=== PATIENT | male | born 1975 | race Two or more races ===

== ENCOUNTER 2023-10-30 13:24 | Observation (INO) | payer SELFPAY ==
[2023-10-30] MEDS: Ondansetron 4 MG/2 ML SDV IVPUSH ONE (15:41)
[2023-10-30] MEDS: Sodium Chloride 0.9% 1,000 ML IV ONE ×2 (15:42→18:03)
[2023-10-30] MEDS: Sodium Chloride 0.9% 2.5 ML Syringe FLUSH PRN (15:43)
[2023-10-30] MEDS: Sodium Chloride 0.9% 10 ML Syringe FLUSH PRN (15:43)
[2023-10-30 15:48] LABS: BASOPHILS ABSOLUTE AUTO 0.04 K/uL (0.00-0.20); BASOPHILS PERCENT AUTO 0.5 % (0.0-1.0); EOSINOPHILS ABSOLUTE AUTO 0.02 K/uL (0.00-0.45); EOSINOPHILS PERCENT AUTO 0.2 % (0.0-6.0); HEMATOCRIT 41.4 % (42.0-52.0); HEMOGLOBIN 15.1 g/dL (14.0-18.0); IMMATURE GRAN ABSOLUTE AUTO 0.07 K/uL (0.00-0.05); IMMATURE GRAN PERCENT AUTO 0.8 % (0.0-0.4); LYMPHOCYTES ABSOLUTE AUTO 2.11 K/uL (1.00-4.80); LYMPHOCYTES PERCENT AUTO 24.9 % (24.0-44.0); MEAN CORPUSCULAR HEMOGLOBIN 30.6 pg (28.0-32.0); MEAN CORPUSCULAR HGB CONC 36.5 g/dL (32.0-36.0); MEAN CORPUSCULAR VOLUME 83.8 fL (83.0-99.0); MEAN PLATELET VOLUME 10.6 fL (9.4-12.4); MONOCYTES ABSOLUTE AUTO 0.75 K/uL (0.00-0.80); MONOCYTES PERCENT AUTO 8.8 % (0.0-8.0); NEUTROPHILS ABSOLUTE AUTO 5.49 K/uL (1.80-7.70); NEUTROPHILS PERCENT AUTO 64.8 % (41.0-71.0); PLATELET COUNT,PLT 189 K/uL (150-400); RED BLOOD CELL COUNT 4.94 M/uL (4.52-5.90); WHITE BLOOD CELL COUNT,WBC 8.48 K/uL (3.9-11.3)
[2023-10-30 16:14] LABS: CALCIUM 9.2 mg/dL (8.5-10.1); CARBON DIOXIDE,CO2 31.7 mmol/L (21.0-32.0); EST CRCL DRUG DOSING (CG) 65.38 mL/min; POTASSIUM,K 3.6 mmol/L (3.5-5.1); PROTEIN TOTAL,TP 7.9 g/dL (6.4-8.2)
[2023-10-30 16:37] LABS: HEMOGLOBIN A1C 11.9 %
[2023-10-30] MEDS ORDERED: Ondansetron 4 MG/2 ML SDV IVPUSH PRN (22:18)
[2023-10-30] MEDS ORDERED: Glucagon,Human Recombinant 1 MG Vial IM PRN (22:18)
[2023-10-30] MEDS ORDERED: 50% Dextrose in Water 50 ML Syringe IVPUSH PRN (22:18)
[2023-10-30] MEDS ORDERED: Acetaminophen 325 MG Tab PO PRN (22:18)
[2023-10-30] MEDS: Insulin Glargine,Hum.Rec.Anlog 100 UNIT/ML 3 ML Pen SUBCUT SCH (22:54)
[2023-10-30] MEDS: Insulin Aspart 100 Units/ML 3 ML Pen SUBCUT SCH (22:59)
[2023-10-31 05:30] LABS: APPEARANCE,URINE CLEAR; BILIRUBIN,URINE NEGATIVE (NEGATIVE); COLOR,URINE YELLOW; GLUCOSE,URINE >=1000 mg/dL (NEGATIVE); KETONES,URINE 15 mg/dL (NEGATIVE); LEUKOCYTE ESTERASE,URINE NEGATIVE (NEGATIVE); NITRITE,URINE NEGATIVE (NEGATIVE); OCCULT BLOOD,URINE NEGATIVE (NEGATIVE); PROTEIN,URINE TRACE mg/dL (NEGATIVE)
[2023-10-31 05:34] LABS: BACTERIA,URINE FEW (NEGATIVE); EPITHELIAL CELLS,URINE RARE (NONE-FEW); RBC,URINE 0-1 (0-2/HPF); WBC,URINE 0-2 (0-5/HPF)
[2023-10-31 06:16] LABS: BASOPHILS ABSOLUTE AUTO 0.02 K/uL (0.00-0.20); BASOPHILS PERCENT AUTO 0.3 % (0.0-1.0); EOSINOPHILS ABSOLUTE AUTO 0.09 K/uL (0.00-0.45); EOSINOPHILS PERCENT AUTO 1.5 % (0.0-6.0); HEMOGLOBIN 13.2 g/dL (14.0-18.0); IMMATURE GRAN ABSOLUTE AUTO 0.01 K/uL (0.00-0.05); IMMATURE GRAN PERCENT AUTO 0.2 % (0.0-0.4); LYMPHOCYTES PERCENT AUTO 45.2 % (24.0-44.0); MEAN CORPUSCULAR HGB CONC 35.7 g/dL (32.0-36.0); MEAN CORPUSCULAR VOLUME 86.9 fL (83.0-99.0); MEAN PLATELET VOLUME 10.5 fL (9.4-12.4); MONOCYTES ABSOLUTE AUTO 0.46 K/uL (0.00-0.80); MONOCYTES PERCENT AUTO 7.4 % (0.0-8.0); NEUTROPHILS ABSOLUTE AUTO 2.81 K/uL (1.80-7.70); NEUTROPHILS PERCENT AUTO 45.4 % (41.0-71.0); PLATELET COUNT,PLT 143 K/uL (150-400); RED BLOOD CELL COUNT 4.26 M/uL (4.52-5.90); WHITE BLOOD CELL COUNT,WBC 6.19 K/uL (3.9-11.3)
[2023-10-31 06:45] LABS: CARBON DIOXIDE,CO2 25.8 mmol/L (21.0-32.0); CREATININE 0.7 mg/dL (0.8-1.3); EST CRCL DRUG DOSING (CG) 93.39 mL/min; POTASSIUM,K 3.3 mmol/L (3.5-5.1)
[2023-10-31] MEDS ORDERED: Sodium Chloride 0.9% 2.5 ML Syringe FLUSH PRN (08:10)
[2023-10-31] MEDS ORDERED: Sodium Chloride 0.9% 10 ML Syringe FLUSH PRN (08:10)
[2023-10-31] MEDS: Insulin Aspart 100 Units/ML 3 ML Pen SUBCUT SCH (08:19)
[2023-10-31] MEDS: Potassium Chloride 20 MEQ Tab.ER PO ONE (08:25)
== END 2023-10-31 14:30 | disposition home or self-care (01) ==
LOC: MW.ED 13:24 → MW.MS 19:06
PROVIDERS: ADMIT Internal Medicine; ATTEND Internal Medicine
DX: E11.65 Type 2 diabetes mellitus with hyperglycemia (principal); Z87.891 Personal history of nicotine dependence
CPT/HCPCS: 36415; 76705; 80048; 80053; 80061; 81001; 82947; 83036; 83690; 83735; 84484; 85025; 93005; 96361; 96374; 99285; A9270; J1815; J2405; J3490; J7030; 93010; 99284; G0378

== ENCOUNTER 2023-12-19 06:45 | Observation (INO) | payer SELFPAY ==
[2023-12-19 07:40] LABS: BASE EXCESS VENOUS 26.3 (-2.0-3.0); BICARBONATE,VENOUS 54 mEQ/mL (22-28); PCO2 VENOUS 62 mmHG (41-51); PH,VENOUS 7.55 (7.31-7.41)
[2023-12-19 07:43] LABS: BASOPHILS ABSOLUTE AUTO 0.03 K/uL (0.00-0.20); BASOPHILS PERCENT AUTO 0.4 % (0.0-1.0); EOSINOPHILS ABSOLUTE AUTO 0.05 K/uL (0.00-0.45); EOSINOPHILS PERCENT AUTO 0.6 % (0.0-6.0); HEMATOCRIT 41.8 % (42.0-52.0); HEMOGLOBIN 15.6 g/dL (14.0-18.0); IMMATURE GRAN ABSOLUTE AUTO 0.01 K/uL (0.00-0.05); IMMATURE GRAN PERCENT AUTO 0.1 % (0.0-0.4); LYMPHOCYTES ABSOLUTE AUTO 2.67 K/uL (1.00-4.80); LYMPHOCYTES PERCENT AUTO 31.8 % (24.0-44.0); MEAN CORPUSCULAR HEMOGLOBIN 30.4 pg (28.0-32.0); MEAN CORPUSCULAR HGB CONC 37.3 g/dL (32.0-36.0); MEAN CORPUSCULAR VOLUME 81.3 fL (83.0-99.0); MEAN PLATELET VOLUME 9.7 fL (9.4-12.4); MONOCYTES ABSOLUTE AUTO 0.82 K/uL (0.00-0.80); MONOCYTES PERCENT AUTO 9.8 % (0.0-8.0); NEUTROPHILS ABSOLUTE AUTO 4.82 K/uL (1.80-7.70); NEUTROPHILS PERCENT AUTO 57.3 % (41.0-71.0); PLATELET COUNT,PLT 206 K/uL (150-400); PO2 VENOUS < 30 mmHG (35-45); RED BLOOD CELL COUNT 5.14 M/uL (4.52-5.90)
[2023-12-19] MEDS: Sodium Chloride 0.9% 10 ML Syringe FLUSH PRN (07:49)
[2023-12-19] MEDS: Sodium Chloride 0.9% 2.5 ML Syringe FLUSH PRN (07:49)
[2023-12-19] MEDS: Famotidine 20 MG/2 ML SDV IVPUSH ONE (07:49)
[2023-12-19] MEDS: Ondansetron 4 MG/2 ML SDV IVPUSH ONE (07:49)
[2023-12-19] MEDS: Sodium Chloride 0.9% 1,000 ML IV ONE (07:49)
[2023-12-19 08:11] LABS: ALBUMIN 4.2 g/dL (3.4-5.0); BILIRUBIN TOTAL 3.4 mg/dL (0.2-1.0); CALCIUM 9.9 mg/dL (8.5-10.1); CREATININE 1.2 mg/dL (0.8-1.3); EST CRCL DRUG DOSING (CG) 49.27 mL/min; PROTEIN TOTAL,TP 8.2 g/dL (6.4-8.2)
[2023-12-19 08:14] LABS: CARBON DIOXIDE,CO2 47.5 mmol/L (21.0-32.0); POTASSIUM,K 2.2 mmol/L (3.5-5.1)
[2023-12-19] MEDS ORDERED: Potassium Chloride 20 MEQ in Premix Bag 1 BAG IV ONE (08:15)
[2023-12-19] MEDS: Potassium Chloride 10% 20 MEQ/15 ML Soln 15 ML UD Cup PO ONE (08:19)
[2023-12-19] MEDS ORDERED: Magnesium Sulfate (4.06 MEQ/ML) 5 GM/10 ML SDV IV ONE (08:23)
[2023-12-19] MEDS: Potassium Chloride 10 MEQ in Premix Bag 1 BAG IV SCH (08:52)
[2023-12-19] MEDS: Sodium Chloride 0.9% 250 ML IV ONE (08:52)
[2023-12-19] MEDS: Magnesium Sulfate/Water 2 GM in Premix Bag 1 BAG IV ONE (08:52)
[2023-12-19] MEDS ORDERED: Polyethylene Glycol 3350 Powder 17 GM Packet PO PRN (10:36)
[2023-12-19] MEDS ORDERED: Ondansetron 4 MG Tab.DIS PO PRN (10:36)
[2023-12-19] MEDS ORDERED: Glucagon,Human Recombinant 1 MG Vial IM PRN (10:53)
[2023-12-19] MEDS ORDERED: 50% Dextrose in Water 50 ML Syringe IVPUSH PRN (10:53)
[2023-12-19] MEDS: Potassium Chloride 20 MEQ Tab.ER PO ONE ×2 (11:44→16:48)
[2023-12-19] MEDS: Enoxaparin 40 MG/0.4 ML Syringe SUBCUT SCH (11:44)
[2023-12-19] MEDS: Insulin Aspart 100 Units/ML 3 ML Pen SUBCUT SCH (11:44)
[2023-12-19 12:34] LABS: CALCIUM 8.7 mg/dL (8.5-10.1); EST CRCL DRUG DOSING (CG) 56.25 mL/min; POTASSIUM,K 2.8 mmol/L (3.5-5.1)
[2023-12-19] MEDS: Pantoprazole 40 MG Tab.CR PO SCH (16:47)
[2023-12-19 17:45] LABS: CALCIUM 9.3 mg/dL (8.5-10.1); CARBON DIOXIDE,CO2 42.4 mmol/L (21.0-32.0); CREATININE 1.1 mg/dL (0.8-1.3); EST CRCL DRUG DOSING (CG) 51.14 mL/min; POTASSIUM,K 3.1 mmol/L (3.5-5.1)
[2023-12-19 18:31] LABS: APPEARANCE,URINE CLEAR; BILIRUBIN,URINE NEGATIVE (NEGATIVE); COLOR,URINE YELLOW; GLUCOSE,URINE 250 mg/dL (NEGATIVE); KETONES,URINE TRACE mg/dL (NEGATIVE); LEUKOCYTE ESTERASE,URINE NEGATIVE (NEGATIVE); NITRITE,URINE NEGATIVE (NEGATIVE); OCCULT BLOOD,URINE NEGATIVE (NEGATIVE); PROTEIN,URINE 100 mg/dL (NEGATIVE)
[2023-12-19 18:59] LABS: BACTERIA,URINE FEW (NEGATIVE); EPITHELIAL CELLS,URINE FEW (NONE-FEW); RBC,URINE 0-2 (0-2/HPF)
[2023-12-19] MEDS: Acetaminophen 325 MG Tab PO PRN (23:14)
[2023-12-20 06:11] LABS: BASOPHILS ABSOLUTE AUTO 0.03 K/uL (0.00-0.20); BASOPHILS PERCENT AUTO 0.4 % (0.0-1.0); EOSINOPHILS ABSOLUTE AUTO 0.09 K/uL (0.00-0.45); EOSINOPHILS PERCENT AUTO 1.1 % (0.0-6.0); HEMATOCRIT 36.7 % (42.0-52.0); HEMOGLOBIN 13.3 g/dL (14.0-18.0); IMMATURE GRAN ABSOLUTE AUTO 0.02 K/uL (0.00-0.05); IMMATURE GRAN PERCENT AUTO 0.2 % (0.0-0.4); LYMPHOCYTES ABSOLUTE AUTO 2.57 K/uL (1.00-4.80); LYMPHOCYTES PERCENT AUTO 30.6 % (24.0-44.0); MEAN CORPUSCULAR HGB CONC 36.2 g/dL (32.0-36.0); MEAN CORPUSCULAR VOLUME 82.7 fL (83.0-99.0); MONOCYTES ABSOLUTE AUTO 0.75 K/uL (0.00-0.80); MONOCYTES PERCENT AUTO 8.9 % (0.0-8.0); NEUTROPHILS ABSOLUTE AUTO 4.93 K/uL (1.80-7.70); NEUTROPHILS PERCENT AUTO 58.8 % (41.0-71.0); PLATELET COUNT,PLT 164 K/uL (150-400); RED BLOOD CELL COUNT 4.44 M/uL (4.52-5.90); WHITE BLOOD CELL COUNT,WBC 8.39 K/uL (3.9-11.3)
[2023-12-20 06:33] LABS: ALBUMIN 3.5 g/dL (3.4-5.0); BILIRUBIN TOTAL 1.8 mg/dL (0.2-1.0); CARBON DIOXIDE,CO2 39.3 mmol/L (21.0-32.0); EST CRCL DRUG DOSING (CG) 56.25 mL/min; MAGNESIUM 1.9 mg/dL (1.8-2.4); POTASSIUM,K 3.5 mmol/L (3.5-5.1); PROTEIN TOTAL,TP 6.9 g/dL (6.4-8.2)
[2023-12-20] MEDS: Lactated Ringers 1,000 ML IV ONE (11:01)
[2023-12-23 13:08] LABS: HAV AB IGM Negative (Negative); HBC IGM Negative (Negative); HEP B SURG AG Negative (Negative); HEP C AB BY CIA Negative (Negative); HEP C AB BY CIA INDEX 0.04 IV
== END 2023-12-20 14:10 | disposition home or self-care (01) ==
LOC: MW.ED 06:45 → MW.MS 08:28
PROVIDERS: ADMIT Family Medicine; ATTEND Family Medicine
DX: E87.6 Hypokalemia (principal); R11.2 Nausea with vomiting, unspecified; E11.9 Type 2 diabetes mellitus without complications; R10.84 Generalized abdominal pain; Z79.4 Long term (current) use of insulin
CPT/HCPCS: 36415; 80048; 80053; 80074; 81001; 82803; 82947; 83036; 83690; 83735; 84484; 85025; 86308; 87389; 93005; 96361; 96365; 96366; 96368; 96372; 96375; 99285; A9270; G0378; J1650; J1815; J2405; J3475; J3480; J3490; J7030; J7050; J7120; 93010; 99222; 99239

== ENCOUNTER 2023-12-29 09:29 | Emergency (ER) | payer OTHER ==
[2023-12-29] MEDS ORDERED: Sodium Chloride 0.9% 10 ML Syringe FLUSH PRN (09:41)
[2023-12-29] MEDS ORDERED: Sodium Chloride 0.9% 2.5 ML Syringe FLUSH PRN (09:41)
[2023-12-29 09:52] LABS: BASOPHILS ABSOLUTE AUTO 0.03 K/uL (0.00-0.20); BASOPHILS PERCENT AUTO 0.4 % (0.0-1.0); EOSINOPHILS ABSOLUTE AUTO 0.04 K/uL (0.00-0.45); EOSINOPHILS PERCENT AUTO 0.6 % (0.0-6.0); HEMATOCRIT 36.1 % (42.0-52.0); HEMOGLOBIN 13.5 g/dL (14.0-18.0); IMMATURE GRAN ABSOLUTE AUTO 0.02 K/uL (0.00-0.05); IMMATURE GRAN PERCENT AUTO 0.3 % (0.0-0.4); LYMPHOCYTES ABSOLUTE AUTO 2.25 K/uL (1.00-4.80); LYMPHOCYTES PERCENT AUTO 31.8 % (24.0-44.0); MEAN CORPUSCULAR HEMOGLOBIN 30.6 pg (28.0-32.0); MEAN CORPUSCULAR HGB CONC 37.4 g/dL (32.0-36.0); MEAN CORPUSCULAR VOLUME 81.9 fL (83.0-99.0); MEAN PLATELET VOLUME 9.3 fL (9.4-12.4); MONOCYTES ABSOLUTE AUTO 0.57 K/uL (0.00-0.80); MONOCYTES PERCENT AUTO 8.1 % (0.0-8.0); NEUTROPHILS ABSOLUTE AUTO 4.17 K/uL (1.80-7.70); NEUTROPHILS PERCENT AUTO 58.8 % (41.0-71.0); PLATELET COUNT,PLT 226 K/uL (150-400); RED BLOOD CELL COUNT 4.41 M/uL (4.52-5.90); WHITE BLOOD CELL COUNT,WBC 7.08 K/uL (3.9-11.3)
[2023-12-29] MEDS: Ondansetron 4 MG/2 ML SDV IVPUSH ONE (09:52)
[2023-12-29] MEDS: Ketorolac 30 MG/ML SDV IVPUSH ONE (09:52)
[2023-12-29] MEDS: Sodium Chloride 0.9% 1,000 ML IV ONE (09:52)
[2023-12-29] MEDS: Alum Hydro/Mag Hydro/Simeth XS 15 ML, Metoclopramide 5 MG, Lidocaine 2% 5 ML PO ONE (09:53)
[2023-12-29 09:56] LABS: APPEARANCE,URINE CLOUDY; BILIRUBIN,URINE NEGATIVE (NEGATIVE); COLOR,URINE YELLOW; GLUCOSE,URINE 100 mg/dL (NEGATIVE); KETONES,URINE 15 mg/dL (NEGATIVE); LEUKOCYTE ESTERASE,URINE NEGATIVE (NEGATIVE); NITRITE,URINE NEGATIVE (NEGATIVE); OCCULT BLOOD,URINE NEGATIVE (NEGATIVE); PROTEIN,URINE 100 mg/dL (NEGATIVE)
[2023-12-29 10:04] LABS: AMORPHOUS SEDIMENT,URINE HEAVY (NEGATIVE); BACTERIA,URINE FEW (NEGATIVE); EPITHELIAL CELLS,URINE FEW (NONE-FEW); MUCUS,URINE LIGHT (NONE-MOD); RBC,URINE 0-2 (0-2/HPF)
[2023-12-29 10:25] LABS: A/G RATIO 1.1 (0.9-1.6); ALBUMIN 3.7 g/dL (3.4-5.0); BILIRUBIN TOTAL 2.2 mg/dL (0.2-1.0); CALCIUM 9.5 mg/dL (8.5-10.1); CARBON DIOXIDE,CO2 34.2 mmol/L (21.0-32.0); CREATININE 0.7 mg/dL (0.8-1.3); EST CRCL DRUG DOSING (CG) 82.14 mL/min; MAGNESIUM 1.5 mg/dL (1.8-2.4); POTASSIUM,K 2.6 mmol/L (3.5-5.1); PROTEIN TOTAL,TP 7.1 g/dL (6.4-8.2)
[2023-12-29] MEDS: Magnesium Oxide 400 MG Tab PO ONE (10:45)
[2023-12-29] MEDS: Potassium Chloride 20 MEQ Tab.ER PO ONE (10:45)
== END 2023-12-29 12:12 | disposition home or self-care (01) ==
LOC: MW.ED 09:29
DX: K52.9 Noninfective gastroenteritis and colitis, unspecified (principal); E87.6 Hypokalemia; E11.9 Type 2 diabetes mellitus without complications; Z75.8 Other problems related to medical facilities and other health care; Z79.4 Long term (current) use of insulin; Z79.899 Other long term (current) drug therapy
CPT/HCPCS: 36415; 76705; 80053; 81001; 82009; 83690; 83735; 85025; 93005; 96361; 96374; 96375; 99284; A9270; J1885; J2405; J7030; 93010

== ENCOUNTER 2023-12-30 12:47 | Emergency (ER) | payer OTHER ==
[2023-12-30] MEDS: Ondansetron 4 MG/2 ML SDV IVPUSH ONE (13:39)
[2023-12-30] MEDS: Sodium Chloride 0.9% 1,000 ML IV ONE ×2 (13:39)
[2023-12-30 14:03] LABS: BASOPHILS ABSOLUTE AUTO 0.02 K/uL (0.00-0.20); BASOPHILS PERCENT AUTO 0.2 % (0.0-1.0); EOSINOPHILS ABSOLUTE AUTO 0.01 K/uL (0.00-0.45); EOSINOPHILS PERCENT AUTO 0.1 % (0.0-6.0); HEMATOCRIT 38.5 % (42.0-52.0); HEMOGLOBIN 14.5 g/dL (14.0-18.0); IMMATURE GRAN ABSOLUTE AUTO 0.04 K/uL (0.00-0.05); IMMATURE GRAN PERCENT AUTO 0.5 % (0.0-0.4); LYMPHOCYTES ABSOLUTE AUTO 2.35 K/uL (1.00-4.80); LYMPHOCYTES PERCENT AUTO 26.5 % (24.0-44.0); MEAN CORPUSCULAR HGB CONC 37.7 g/dL (32.0-36.0); MEAN CORPUSCULAR VOLUME 82.3 fL (83.0-99.0); MEAN PLATELET VOLUME 9.5 fL (9.4-12.4); MONOCYTES ABSOLUTE AUTO 0.71 K/uL (0.00-0.80); NEUTROPHILS ABSOLUTE AUTO 5.74 K/uL (1.80-7.70); NEUTROPHILS PERCENT AUTO 64.7 % (41.0-71.0); PLATELET COUNT,PLT 311 K/uL (150-400); RED BLOOD CELL COUNT 4.68 M/uL (4.52-5.90); WHITE BLOOD CELL COUNT,WBC 8.87 K/uL (3.9-11.3)
[2023-12-30 14:05] LABS: BASE EXCESS VENOUS 11.3 (-2.0-3.0); PH,VENOUS 7.5 (7.31-7.41)
[2023-12-30 14:56] LABS: A/G RATIO 1.1 (0.9-1.6); ALANINE AMINOTRANSFERASE,ALT 34 IU/L (14-63); ALBUMIN 3.9 g/dL (3.4-5.0); ALKALINE PHOSPHATASE 70 U/L (46-116); ASPARTATE AMNIOTRANSFERASE,AST 24 IU/L (15-37); BILIRUBIN TOTAL 2.9 mg/dL (0.2-1.0); BLOOD UREA NITROGEN,BUN 27 mg/dL (7.0-18.0); CALCIUM 9.7 mg/dL (8.5-10.1); CARBON DIOXIDE,CO2 33.9 mmol/L (21.0-32.0); CHLORIDE,CL 95 mmol/L (98-107); CREATININE 1.4 mg/dL (0.8-1.3); EST CRCL DRUG DOSING (CG) 39.29 mL/min; GLUCOSE RANDOM 170 mg/dL (74-106); LIPASE 22 U/L (16-77); MAGNESIUM 1.9 mg/dL (1.8-2.4); POTASSIUM,K 2.9 mmol/L (3.5-5.1); PROTEIN TOTAL,TP 7.6 g/dL (6.4-8.2); SODIUM,NA 140 mmol/L (136-148); TSH ULTRASENSITIVE 1.26 uIU/mL (0.36-3.74)
[2023-12-30 15:00] LABS: ESTIMATED GFR 61 mL/min (>60); ETHANOL BLOOD MEDICAL < 3.0 mg/dL
[2023-12-30] MEDS: Iopamidol 755 MG/ML 500 ML Multipack Bottle IVPUSH ONE (15:53)
[2023-12-30] MEDS: Morphine 4 MG/ML Syringe IVPUSH ONE (17:53)
[2023-12-30] MEDS: Alum Hydro/Mag Hydro/Simeth XS 15 ML, Lidocaine 2% 5 ML PO ONE (17:53)
[2023-12-30] MEDS: Sodium Chloride 0.9% 2.5 ML Syringe FLUSH PRN (22:24)
[2023-12-30] MEDS: Sodium Chloride 0.9% 10 ML Syringe FLUSH PRN (22:24)
[2023-12-30] MEDS: Lidocaine 2% Viscous Solution 15 ML UD PO ONE (22:24)
[2023-12-30] MEDS: Potassium Chloride 10 MEQ in Premix Bag 1 BAG IV ONE (23:08)
[2023-12-30] MEDS: Sodium Chloride 0.9% 250 ML IV SCH (23:09)
== END 2023-12-31 05:20 ==
LOC: MW.ED 12:47
DX: K31.5 Obstruction of duodenum (principal); E87.6 Hypokalemia; K86.9 Disease of pancreas, unspecified
CPT/HCPCS: 36415; 43752; 74177; 80053; 80307; 82803; 82947; 83605; 83690; 83735; 84443; 84484; 85025; 96361; 96374; 96375; 99285; A9270; J2270; J2405; J3480; J3490; J7030; J7050; Q9967; 99284

== ENCOUNTER 2024-01-11 08:35 | Emergency (ER) | payer OTHER ==
[2024-01-11] MEDS ORDERED: Sodium Chloride 0.9% 10 ML Syringe FLUSH PRN (08:47)
[2024-01-11] MEDS ORDERED: Sodium Chloride 0.9% 2.5 ML Syringe FLUSH PRN (08:47)
[2024-01-11] MEDS: Sodium Chloride 0.9% 1,000 ML IV ONE (08:59)
[2024-01-11] MEDS: Famotidine 20 MG/2 ML SDV IVPUSH ONE (09:00)
[2024-01-11] MEDS: HYDROmorphone 1 MG/ML Syringe IVPUSH ONE (09:00)
[2024-01-11] MEDS: Ondansetron 4 MG/2 ML SDV IVPUSH ONE (09:01)
[2024-01-11 09:03] LABS: BASOPHILS ABSOLUTE AUTO 0.04 K/uL (0.00-0.20); BASOPHILS PERCENT AUTO 0.6 % (0.0-1.0); EOSINOPHILS ABSOLUTE AUTO 0.03 K/uL (0.00-0.45); EOSINOPHILS PERCENT AUTO 0.4 % (0.0-6.0); HEMATOCRIT 33.7 % (42.0-52.0); IMMATURE GRAN ABSOLUTE AUTO 0.01 K/uL (0.00-0.05); IMMATURE GRAN PERCENT AUTO 0.1 % (0.0-0.4); LYMPHOCYTES ABSOLUTE AUTO 1.83 K/uL (1.00-4.80); MEAN CORPUSCULAR HEMOGLOBIN 30.2 pg (28.0-32.0); MEAN CORPUSCULAR HGB CONC 35.6 g/dL (32.0-36.0); MEAN CORPUSCULAR VOLUME 84.7 fL (83.0-99.0); MEAN PLATELET VOLUME 8.9 fL (9.4-12.4); MONOCYTES ABSOLUTE AUTO 0.53 K/uL (0.00-0.80); MONOCYTES PERCENT AUTO 7.8 % (0.0-8.0); NEUTROPHILS ABSOLUTE AUTO 4.34 K/uL (1.80-7.70); NEUTROPHILS PERCENT AUTO 64.1 % (41.0-71.0); PLATELET COUNT,PLT 252 K/uL (150-400); RED BLOOD CELL COUNT 3.98 M/uL (4.52-5.90); WHITE BLOOD CELL COUNT,WBC 6.78 K/uL (3.9-11.3)
[2024-01-11 09:24] LABS: A/G RATIO 0.9 (0.9-1.6); ALBUMIN 3.4 g/dL (3.4-5.0); BILIRUBIN TOTAL 1.4 mg/dL (0.2-1.0); CALCIUM 8.9 mg/dL (8.5-10.1); CREATININE 0.7 mg/dL (0.8-1.3); EST CRCL DRUG DOSING (CG) 77.68 mL/min; POTASSIUM,K 3.9 mmol/L (3.5-5.1); PROTEIN TOTAL,TP 7.1 g/dL (6.4-8.2)
== END 2024-01-11 09:48 | disposition home or self-care (01) ==
LOC: MW.ED 08:35
DX: C25.9 Malignant neoplasm of pancreas, unspecified (principal); Z79.899 Other long term (current) drug therapy
CPT/HCPCS: 36415; 80053; 83690; 85025; 96361; 96374; 96375; 99284; J1170; J2405; J3490; J7030

== ENCOUNTER 2024-01-13 07:26 | Emergency (ER) | payer OTHER ==
[2024-01-13] MEDS: Sodium Chloride 0.9% 2.5 ML Syringe FLUSH PRN (08:09)
[2024-01-13] MEDS: Sodium Chloride 0.9% 10 ML Syringe FLUSH PRN (08:09)
[2024-01-13] MEDS: HYDROmorphone 1 MG/ML Syringe IVPUSH ONE (08:10)
[2024-01-13] MEDS: Ondansetron 4 MG/2 ML SDV IVPUSH ONE (08:11)
[2024-01-13] MEDS: Sodium Chloride 0.9% 500 ML IV SCH (08:23)
[2024-01-13 08:25] LABS: BASOPHILS ABSOLUTE AUTO 0.03 K/uL (0.00-0.20); BASOPHILS PERCENT AUTO 0.5 % (0.0-1.0); EOSINOPHILS ABSOLUTE AUTO 0.05 K/uL (0.00-0.45); EOSINOPHILS PERCENT AUTO 0.8 % (0.0-6.0); HEMATOCRIT 32.6 % (42.0-52.0); IMMATURE GRAN ABSOLUTE AUTO 0.02 K/uL (0.00-0.05); IMMATURE GRAN PERCENT AUTO 0.3 % (0.0-0.4); LYMPHOCYTES ABSOLUTE AUTO 1.81 K/uL (1.00-4.80); LYMPHOCYTES PERCENT AUTO 29.2 % (24.0-44.0); MEAN CORPUSCULAR HEMOGLOBIN 30.9 pg (28.0-32.0); MEAN CORPUSCULAR HGB CONC 36.8 g/dL (32.0-36.0); MEAN PLATELET VOLUME 9.3 fL (9.4-12.4); MONOCYTES ABSOLUTE AUTO 0.42 K/uL (0.00-0.80); MONOCYTES PERCENT AUTO 6.8 % (0.0-8.0); NEUTROPHILS ABSOLUTE AUTO 3.86 K/uL (1.80-7.70); NEUTROPHILS PERCENT AUTO 62.4 % (41.0-71.0); PLATELET COUNT,PLT 227 K/uL (150-400); RED BLOOD CELL COUNT 3.88 M/uL (4.52-5.90); WHITE BLOOD CELL COUNT,WBC 6.19 K/uL (3.9-11.3)
[2024-01-13 08:58] LABS: ALBUMIN 3.3 g/dL (3.4-5.0); BILIRUBIN TOTAL 1.6 mg/dL (0.2-1.0); CARBON DIOXIDE,CO2 28.1 mmol/L (21.0-32.0); CREATININE 0.6 mg/dL (0.8-1.3); EST CRCL DRUG DOSING (CG) 94.38 mL/min; POTASSIUM,K 3.6 mmol/L (3.5-5.1); PROTEIN TOTAL,TP 6.7 g/dL (6.4-8.2)
== END 2024-01-13 09:41 | disposition home or self-care (01) ==
LOC: MW.ED 07:26
DX: C25.9 Malignant neoplasm of pancreas, unspecified (principal); R19.7 Diarrhea, unspecified; E11.9 Type 2 diabetes mellitus without complications; Z79.84 Long term (current) use of oral hypoglycemic drugs; Z79.899 Other long term (current) drug therapy
CPT/HCPCS: 36415; 80053; 83690; 85025; 96361; 96374; 96375; 99284; J1170; J2405; J3490; J7040

== ENCOUNTER 2024-01-15 08:34 | Emergency (ER) | payer OTHER ==
[2024-01-15] MEDS: HYDROmorphone 2 MG Tab PO ONE ×2 (09:06→09:16)
== END 2024-01-15 09:41 | disposition home or self-care (01) ==
LOC: MW.ED 08:34
DX: C25.9 Malignant neoplasm of pancreas, unspecified (principal); E11.9 Type 2 diabetes mellitus without complications; Z79.84 Long term (current) use of oral hypoglycemic drugs; Z79.899 Other long term (current) drug therapy; Z75.8 Other problems related to medical facilities and other health care
CPT/HCPCS: 99283; A9270

== ENCOUNTER 2024-01-22 13:23 | Emergency (ER) | payer OTHER ==
[2024-01-22] MEDS: Ondansetron 4 MG Tab.DIS PO ONE (13:42)
[2024-01-22] MEDS: HYDROmorphone 2 MG Tab PO STA (14:54)
== END 2024-01-22 15:19 | disposition home or self-care (01) ==
LOC: MW.ED 13:23
DX: R10.9 Unspecified abdominal pain (principal); E11.9 Type 2 diabetes mellitus without complications; Z85.07 Personal history of malignant neoplasm of pancreas; Z76.0 Encounter for issue of repeat prescription; Z79.84 Long term (current) use of oral hypoglycemic drugs; Z79.899 Other long term (current) drug therapy; Z75.8 Other problems related to medical facilities and other health care
CPT/HCPCS: 99283; A9270

== ENCOUNTER 2024-01-27 21:50 | Emergency (ER) | payer OTHER ==
[2024-01-27 23:01] LABS: BASOPHILS ABSOLUTE AUTO 0.05 K/uL (0.00-0.20); BASOPHILS PERCENT AUTO 0.8 % (0.0-1.0); EOSINOPHILS ABSOLUTE AUTO 0.03 K/uL (0.00-0.45); EOSINOPHILS PERCENT AUTO 0.5 % (0.0-6.0); HEMATOCRIT 30.5 % (42.0-52.0); HEMOGLOBIN 11.1 g/dL (14.0-18.0); IMMATURE GRAN ABSOLUTE AUTO 0.02 K/uL (0.00-0.05); IMMATURE GRAN PERCENT AUTO 0.3 % (0.0-0.4); LYMPHOCYTES ABSOLUTE AUTO 1.76 K/uL (1.00-4.80); LYMPHOCYTES PERCENT AUTO 28.3 % (24.0-44.0); MEAN CORPUSCULAR HEMOGLOBIN 31.2 pg (28.0-32.0); MEAN CORPUSCULAR HGB CONC 36.4 g/dL (32.0-36.0); MEAN CORPUSCULAR VOLUME 85.7 fL (83.0-99.0); MEAN PLATELET VOLUME 9.5 fL (9.4-12.4); MONOCYTES ABSOLUTE AUTO 0.66 K/uL (0.00-0.80); MONOCYTES PERCENT AUTO 10.6 % (0.0-8.0); NEUTROPHILS ABSOLUTE AUTO 3.71 K/uL (1.80-7.70); NEUTROPHILS PERCENT AUTO 59.5 % (41.0-71.0); PLATELET COUNT,PLT 233 K/uL (150-400); RED BLOOD CELL COUNT 3.56 M/uL (4.52-5.90); WHITE BLOOD CELL COUNT,WBC 6.23 K/uL (3.9-11.3)
[2024-01-27 23:11] LABS: A/G RATIO 1.2 (0.9-1.6); ALBUMIN 3.9 g/dL (3.4-5.0); CALCIUM 9.3 mg/dL (8.5-10.1); CARBON DIOXIDE,CO2 29.5 mmol/L (21.0-32.0); CREATININE 1.6 mg/dL (0.8-1.3); EST CRCL DRUG DOSING (CG) 35.16 mL/min; POTASSIUM,K 3.5 mmol/L (3.5-5.1); PROTEIN TOTAL,TP 7.1 g/dL (6.4-8.2)
[2024-01-27] MEDS: droPERidol 5 MG/2 ML SDV IVPUSH ONE (23:38)
[2024-01-27] MEDS: Sodium Chloride 0.9% 1,000 ML IV STA (23:38)
[2024-01-28] MEDS: Magnesium Sulfate/Water 2 GM in Premix Bag 1 BAG IV ONE (00:54)
[2024-01-28] MEDS: Potassium Chloride 20 MEQ Tab.ER PO ONE (01:19)
[2024-01-28 01:47] LABS: CREATININE 1.3 mg/dL (0.8-1.3); EST CRCL DRUG DOSING (CG) 43.27 mL/min
== END 2024-01-28 05:40 | disposition home or self-care (01) ==
LOC: MW.ED 21:50
DX: N17.9 Acute kidney failure, unspecified (principal); R11.2 Nausea with vomiting, unspecified; E11.9 Type 2 diabetes mellitus without complications; Z75.8 Other problems related to medical facilities and other health care; Z79.899 Other long term (current) drug therapy; Z79.84 Long term (current) use of oral hypoglycemic drugs
CPT/HCPCS: 36415; 80053; 82565; 83690; 83735; 85025; 96361; 96365; 96366; 96375; 99284; A9270; J1790; J3475; J7030

== ENCOUNTER 2024-02-05 09:59 | Emergency (ER) | payer OTHER ==
[2024-02-05] MEDS: Ondansetron 4 MG/2 ML SDV IVPUSH STA (10:44)
[2024-02-05] MEDS: Sodium Chloride 0.9% 1,000 ML IV STA ×2 (10:44→11:59)
[2024-02-05] MEDS: Sodium Chloride 0.9% 10 ML Syringe FLUSH PRN (10:44)
[2024-02-05] MEDS: Sodium Chloride 0.9% 2.5 ML Syringe FLUSH PRN (10:44)
[2024-02-05 10:51] LABS: BASOPHILS ABSOLUTE AUTO 0.03 K/uL (0.00-0.20); BASOPHILS PERCENT AUTO 0.4 % (0.0-1.0); EOSINOPHILS ABSOLUTE AUTO 0.04 K/uL (0.00-0.45); EOSINOPHILS PERCENT AUTO 0.6 % (0.0-6.0); HEMATOCRIT 33.6 % (42.0-52.0); HEMOGLOBIN 12.1 g/dL (14.0-18.0); IMMATURE GRAN ABSOLUTE AUTO 0.03 K/uL (0.00-0.05); IMMATURE GRAN PERCENT AUTO 0.4 % (0.0-0.4); LYMPHOCYTES ABSOLUTE AUTO 2.41 K/uL (1.00-4.80); LYMPHOCYTES PERCENT AUTO 35.8 % (24.0-44.0); MEAN CORPUSCULAR HEMOGLOBIN 31.5 pg (28.0-32.0); MEAN CORPUSCULAR VOLUME 87.5 fL (83.0-99.0); MONOCYTES ABSOLUTE AUTO 0.54 K/uL (0.00-0.80); NEUTROPHILS ABSOLUTE AUTO 3.69 K/uL (1.80-7.70); NEUTROPHILS PERCENT AUTO 54.8 % (41.0-71.0); PLATELET COUNT,PLT 210 K/uL (150-400); RED BLOOD CELL COUNT 3.84 M/uL (4.52-5.90); WHITE BLOOD CELL COUNT,WBC 6.74 K/uL (3.9-11.3)
[2024-02-05 11:20] LABS: A/G RATIO 1.2 (0.9-1.6); ALBUMIN 3.7 g/dL (3.4-5.0); BILIRUBIN TOTAL 1.8 mg/dL (0.2-1.0); CALCIUM 9.3 mg/dL (8.5-10.1); CARBON DIOXIDE,CO2 32.4 mmol/L (21.0-32.0); CREATININE 0.8 mg/dL (0.8-1.3); POTASSIUM,K 4.3 mmol/L (3.5-5.1); PROTEIN TOTAL,TP 6.8 g/dL (6.4-8.2)
[2024-02-05] MEDS: Magnesium Sulfate/Water Premix 2 GM in Premix Bag 1 BAG IV STA (11:34)
== END 2024-02-05 13:16 | disposition home or self-care (01) ==
LOC: MW.ED 09:59
DX: R11.2 Nausea with vomiting, unspecified (principal); E11.9 Type 2 diabetes mellitus without complications; Z79.899 Other long term (current) drug therapy; Z79.84 Long term (current) use of oral hypoglycemic drugs
CPT/HCPCS: 36415; 80053; 83690; 83735; 85025; 96361; 96365; 96375; 99284; J2405; J3475; J3490; J7030

== ENCOUNTER 2024-02-20 13:24 | Emergency (ER) | payer OTHER ==
[2024-02-20] MEDS: Morphine 4 MG/ML Syringe IVPUSH STA (14:44)
[2024-02-20] MEDS: droPERidol 5 MG/2 ML SDV IVPUSH STA (14:52)
[2024-02-20] MEDS: Sodium Chloride 0.9% 500 ML IV STA (14:52)
[2024-02-20] MEDS: Morphine 2 MG/ML SYRINGE IVPUSH STA (14:53)
[2024-02-20 15:06] LABS: BASOPHILS ABSOLUTE AUTO 0.02 K/uL (0.00-0.20); BASOPHILS PERCENT AUTO 0.4 % (0.0-1.0); EOSINOPHILS ABSOLUTE AUTO 0.01 K/uL (0.00-0.45); EOSINOPHILS PERCENT AUTO 0.2 % (0.0-6.0); HEMATOCRIT 29.4 % (42.0-52.0); HEMOGLOBIN 10.9 g/dL (14.0-18.0); IMMATURE GRAN ABSOLUTE AUTO 0.02 K/uL (0.00-0.05); IMMATURE GRAN PERCENT AUTO 0.4 % (0.0-0.4); LYMPHOCYTES ABSOLUTE AUTO 1.32 K/uL (1.00-4.80); LYMPHOCYTES PERCENT AUTO 26.2 % (24.0-44.0); MEAN CORPUSCULAR HEMOGLOBIN 31.9 pg (28.0-32.0); MEAN CORPUSCULAR HGB CONC 37.1 g/dL (32.0-36.0); MEAN PLATELET VOLUME 8.8 fL (9.4-12.4); MONOCYTES ABSOLUTE AUTO 0.45 K/uL (0.00-0.80); MONOCYTES PERCENT AUTO 8.9 % (0.0-8.0); NEUTROPHILS ABSOLUTE AUTO 3.22 K/uL (1.80-7.70); NEUTROPHILS PERCENT AUTO 63.9 % (41.0-71.0); PLATELET COUNT,PLT 183 K/uL (150-400); RED BLOOD CELL COUNT 3.42 M/uL (4.52-5.90); WHITE BLOOD CELL COUNT,WBC 5.04 K/uL (3.9-11.3)
[2024-02-20 15:27] LABS: A/G RATIO 1.2 (0.9-1.6); ALBUMIN 3.5 g/dL (3.4-5.0); BILIRUBIN TOTAL 1.6 mg/dL (0.2-1.0); CALCIUM 9.2 mg/dL (8.5-10.1); CARBON DIOXIDE,CO2 31.8 mmol/L (21.0-32.0); CREATININE 0.8 mg/dL (0.8-1.3); EST CRCL DRUG DOSING (CG) 59.38 mL/min; POTASSIUM,K 3.7 mmol/L (3.5-5.1); PROTEIN TOTAL,TP 6.5 g/dL (6.4-8.2)
[2024-02-20] MEDS: Magnesium Sulfate/Water Premix 2 GM in Premix Bag 1 BAG IV STA (16:17)
[2024-02-20] MEDS: Magnesium Oxide 400 MG Tab PO STA (16:24)
== END 2024-02-20 16:28 | disposition home or self-care (01) ==
LOC: MW.ED 13:24
DX: R10.9 Unspecified abdominal pain (principal); E11.9 Type 2 diabetes mellitus without complications; Z79.84 Long term (current) use of oral hypoglycemic drugs; Z79.899 Other long term (current) drug therapy; Z75.8 Other problems related to medical facilities and other health care
CPT/HCPCS: 36415; 80053; 83690; 83735; 85025; 96361; 96374; 96375; 99284; A9270; J1790; J2270; J7040

== ENCOUNTER 2024-03-26 16:04 | Emergency (ER) | payer OTHER ==
[2024-03-26] MEDS ORDERED: Sodium Chloride 0.9% 2.5 ML Syringe FLUSH PRN (16:49)
[2024-03-26] MEDS ORDERED: Sodium Chloride 0.9% 10 ML Syringe FLUSH PRN (16:49)
[2024-03-26] MEDS: Sodium Chloride 0.9% 1,000 ML IV ONE ×3 (16:56→17:11)
[2024-03-26 16:59] LABS: BASE EXCESS VENOUS -2.4 (-2.0-3.0); PH,VENOUS 7.36 (7.31-7.41)
[2024-03-26 17:05] LABS: HEMATOCRIT 36.3 % (42.0-52.0); HEMOGLOBIN 13.2 g/dL (14.0-18.0); MEAN CORPUSCULAR HEMOGLOBIN 31.5 pg (28.0-32.0); MEAN CORPUSCULAR HGB CONC 36.4 g/dL (32.0-36.0); MEAN CORPUSCULAR VOLUME 86.6 fL (83.0-99.0); MEAN PLATELET VOLUME 9.5 fL (9.4-12.4); PLATELET COUNT,PLT 191 K/uL (150-400); RED BLOOD CELL COUNT 4.19 M/uL (4.52-5.90); WHITE BLOOD CELL COUNT,WBC 6.82 K/uL (3.9-11.3)
[2024-03-26 17:12] LABS: INR 1.57 (0.86-1.11)
[2024-03-26 17:40] LABS: LACTIC ACID 2.1 mmol/L (0.4-2.0)
[2024-03-26 17:47] LABS: A/G RATIO 1.1 (0.9-1.6); ALBUMIN 3.1 g/dL (3.4-5.0); ALKALINE PHOSPHATASE 958 U/L (46-116); BLOOD UREA NITROGEN,BUN 80 mg/dL (7.0-18.0); CALCIUM 8.2 mg/dL (8.5-10.1); CARBON DIOXIDE,CO2 23.6 mmol/L (21.0-32.0); CHLORIDE,CL 104 mmol/L (98-107); EST CRCL DRUG DOSING (CG) 38.94 mL/min; GLUCOSE RANDOM 138 mg/dL (74-106); LIPASE 17 U/L (16-77); POTASSIUM,K 3.7 mmol/L (3.5-5.1); SODIUM,NA 139 mmol/L (136-148)
[2024-03-26 17:48] LABS: ALANINE AMINOTRANSFERASE,ALT 1417 IU/L (14-63); ESTIMATED GFR 91 mL/min (>60)
[2024-03-26 17:52] LABS: BAND ABSOLUTE MAN 2.11; LYMPHOCYTES ABSOLUTE MAN 2.11 K/uL (1.00-4.80); LYMPHOCYTES PERCENT MAN 31 % (24-44); MONOCYTES ABSOLUTE MAN 0.61 K/uL (0.00-0.80); MONOCYTES PERCENT MAN 9 % (0-8); SEG NEUTROPHILS ABSOLUTE MAN 4.09 K/uL (1.80-7.70); SEG NEUTROPHILS PERCENT MAN 60 % (41-71)
[2024-03-26 18:14] LABS: ASPARTATE AMNIOTRANSFERASE,AST 3222 IU/L (15-37)
[2024-03-26] MEDS: Iopamidol 755 MG/ML 500 ML Multipack Bottle IVPUSH STA (18:48)
[2024-03-26] MEDS ORDERED: Naloxone 0.4 MG/ML SDV IVPUSH PRN (19:30)
[2024-03-26] MEDS: HYDROmorphone 0.5 MG/0.5 ML Syringe IVPUSH ONE (19:36)
[2024-03-26] MEDS: Norepinephrine Bit/D5W Premix 250 ML IV SCH (23:24)
[2024-03-26] MEDS: Piperacillin/Tazobactam 3.375 GM in Sodium Chloride 0.9% 100 ML IV ONE (23:59)
[2024-03-27] MEDS: Sodium Chloride 0.9% 1,000 ML IV ONE (07:19)
[2024-03-27 07:42] LABS: A/G RATIO 1.1 (0.9-1.6); ALBUMIN 2.9 g/dL (3.4-5.0); BILIRUBIN TOTAL 3.4 mg/dL (0.2-1.0); CALCIUM 7.6 mg/dL (8.5-10.1); CARBON DIOXIDE,CO2 25.4 mmol/L (21.0-32.0); CREATININE 0.8 mg/dL (0.8-1.3); EST CRCL DRUG DOSING (CG) 48.67 mL/min; PROTEIN TOTAL,TP 5.5 g/dL (6.4-8.2)
== END 2024-03-27 07:30 ==
LOC: MW.ED 16:04
DX: K72.00 Acute and subacute hepatic failure without coma (principal); I95.9 Hypotension, unspecified; E86.1 Hypovolemia; E80.6 Other disorders of bilirubin metabolism; R18.8 Other ascites; R64 Cachexia; R79.1 Abnormal coagulation profile; R74.01 Elevation of levels of liver transaminase levels; Z85.07 Personal history of malignant neoplasm of pancreas; E11.9 Type 2 diabetes mellitus without complications; Z79.84 Long term (current) use of oral hypoglycemic drugs; Z79.899 Other long term (current) drug therapy
CPT/HCPCS: 36415; 71045; 74177; 80053; 82140; 82803; 83605; 83690; 84484; 85025; 85610; 87040; 87428; 93005; 96361; 96365; 96366; 96368; 96375; 99285; J1171; J2543; J3490; J7030; Q9967